=== PATIENT | female | born 1995 | race African-American/Black ===

== ENCOUNTER 2016-11-11 18:41 | Emergency (ER) | payer OTHER ==
[~2016-11-11] VITALS: Ht 170.2 cm; Wt 83.9 kg
[~2016-11-11 18:41] MED LIST: CALCIUM 500 +1 EAC2 PO; CIPRO PO; CLARITIN10 M3 PO; HYDROCHLOROTH12.5 MG PO; MEDI-MECLIZINE25 M1 PO; MEDROL DOSEPAK4 MG PO; NORCO 7.5-3251 EACH PO; ONDANSETRON HCL4 MG PO; PROTONIX PO; VITAMIN C1000 M1 PO; ZOFRAN PO
== END 2016-11-11 20:47 | disposition left against medical advice (07) ==
LOC: CED 18:41
DX: Z53.21 Procedure and treatment not carried out due to patient leaving prior to being seen by health care provider (principal)